=== PATIENT | male | born 1955 | race Caucasian/White ===

== ENCOUNTER 2017-06-01 05:40 | Day surgery (SDC) | payer OTHER, SELFPAY ==
--- NOTE | 2017-05-27 07:30 | EKG12_ITS ---
Test Reason : PREOP Blood Pressure : / mmHG Vent. Rate : 079 BPM Atrial Rate : 079 BPM P-R Int : 120 ms QRS Dur : 100 ms QT Int : 370 ms P-R-T Axes : 041 078 070 degrees QTc Int : 424 ms Normal sinus rhythm Normal ECG Confirmed by YAIR MOREJON, BINA ([id number]), video effects editor LASHAY ZHENG ([id number]) on 05/29/2017 3:00:59 PM Referred By: Matt Miles Confirmed By:BINA MAZARIEGOS MD
[2017-05-27 08:23] LABS: Hematocrit 44.6 % (40-54); Hemoglobin 15.4 g/dl (13.0-16.5); Mean Corp Hgb Conc 34.5 g/gl (32-36); Mean Corpuscular Hgb 31.5 pg (27.0-32.0); Mean Corpuscular Volume 91.2 fL (80-94); Mean Platelet Vol. 11.5 fl (6.2-12.0); Platelet Count 193 K/mm3 (150-450); RBC Distribution Width CV 13.5 % (11.6-14.6); RBC Distribution Width SD 44.4 fl (35.1-43.9); Red Blood Count 4.89 M/mm3 (4.6-6.2); White Blood Count 6.5 K/mm3 (4.4-11.0)
[2017-05-27 08:27] LABS: Scan Indicated on CBC? Y/N NO
[2017-05-27 08:56] LABS: Anion Gap 8 (5-15); BUN 23 mg/dL (7-18); BUN/Creat Ratio 26.6 RATIO (10-20); Calcium,Total 8.4 mg/dL (8.5-10.1); Chloride 107 mmol/L (98-107); Creatinine, Serum 0.87 mg/dL (0.70-1.30); EST Glomerular Filtration Rate 96 mL/min (>60); Est Glom Filt Rate - Afr Amer 116 mL/min (>60); Glucose 114 mg/dL (74-106); Potassium 4.6 mmol/L (3.5-5.1); Sodium Level 140 mmol/L (136-145)
[2017-06-01 06:10] VITALS: BP 132/95; PULSE 95; RESP 18; TEMP 36.6; O2SAT 96; BMI 32.5
[2017-06-01] MEDS: Cefazolin 2 GM in 0.9% Normal Saline 100 ML IV (07:13)
--- NOTE | 2017-06-01 07:15 | MASS_PTH ---
PATIENT: RAHUL NOVA LOC: [facility] [place] U#:[id number] AGE/SX: 62/M ROOM: RE06/01/[address]: Dr. Matt Miles MD : [id number] BED: DIS: 06/01/2017 SPEC #: [id number] RECD: 06/01/17 08:31 STATUS: MUSHTAQ AMELIA #: [id number] LOPEZ: 06/01/17 07:[address]: Matt Miles DEPT: SURGICAL PATHOLOGY RECD BY: Jena Rocha ENTERED: 06/01/17 10:58 SP TYPE: Mass OTHR DR: Jeanine Primary Care Phys Tissues: Right breast, NOS Procedures: Surgery Specimen Level III HEADER OPERATION: Breast debridement, retroareolar PRE-OP DIAGNOSIS: Right breast mass TISSUE SUBMITTED: Right retroareolar mass MICROSCOPIC DIAGNOSIS Right retroareolar mass, biopsy: Ruptured epidermal inclusion cyst with associated inflammation and foreign body giant cell reaction. SJ:parveen 06/02/17 MICROSCOPIC DESCRIPTION Slides are reviewed. GROSS DESCRIPTION Received in fixative is one container labeled with the patient's name and designated right retroareolar mass. The specimen consists of a piece of adipose tissue measuring 2 x 2 x1.5 cm. The specimen is inked, serially sectioned and reveals a cyst measuring 1.5 cm in greatest dimension. The entire specimen is submitted in one cassette. / VIOLA:parveen 06/01/17 TC:5 CPT: 68600
[2017-06-01] MEDS: Bupivacaine Mpf 0.5% 30 ML VIAL (07:45)
--- NOTE | 2017-06-01 07:59 | PCM.OPRPT ---
Problem List (1) Breast mass in male Status: Acute Report of Operation Date of Procedure: 06/01/17 Pre-Operative Diagnosis: Right retro-areolar breast mass Post-Operative Diagnosis: Cystic right retroareolar breast mass Surgery/Procedure Performed:: Right subcutaneous mastectomy Description of Surgical Findings:: Timeout and informed consent was obtained. 62-year-old gent was taken out from placement table underwent general anesthesia. Ancef 2 g given intravenous preoperatively. The right breast was sterilely prepped and draped. A curvilinear incision was made circumareolar the anterolateral aspect of the right breast. Sharp dissection performed directly retroareolar Moiz. A cystic lesion was encountered with a light thurston purulent material. 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 Then a right breast subtendinous mastectomy was performed using sharp and electrocautery dissection to completely excise this cystic mass. Hemostasis was assured with electrocautery. The wound was irrigated. The wound was approximated with interrupted 4-0 Monocryl subdermal stitches. A rubber band drain was left in place. Bulky dry dressings applied. Blood loss minimal. The michelle-incisional area was anesthetized with 30 cc 0.5% Marcaine. Sponge instrument and needle counts were reported to be correct. The specimen was submitted in formalin for analysis. No apparent complications. Matt Miles M.D., F.A.C.S. Type of Anesthesia:: General Anesthesiologist: Kan Silvestre
[2017-06-01 08:01] VITALS: BP 127/83; BP 132/95; PULSE 80; RESP 18; TEMP 36.1; O2SAT 92
--- NOTE | 2017-06-01 08:02 | OP.PCM_ITS ---
Problem List (1) Breast mass in male Status: Acute Report of Operation Date of Procedure: 06/01/17 Pre-Operative Diagnosis: Right retro-areolar breast mass Post-Operative Diagnosis: Cystic right retroareolar breast mass Surgery/Procedure Performed:: Right subcutaneous mastectomy Description of Surgical Findings:: Timeout and informed consent was obtained. 62-year-old gent was taken out from placement table underwent general anesthesia. Ancef 2 g given intravenous preoperatively. The right breast was sterilely prepped and draped. A curvilinear incision was made circumareolar the anterolateral aspect of the right breast. Sharp dissection performed directly retroareolar Moiz. A cystic lesion was encountered with a light thurston purulent material. 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 Then a right breast subtendinous mastectomy was performed using sharp and electrocautery dissection to completely excise this cystic mass. Hemostasis was assured with electrocautery. The wound was irrigated. The wound was approximated with interrupted 4-0 Monocryl subdermal stitches. A rubber band drain was left in place. Bulky dry dressings applied. Blood loss minimal. The michelle-incisional area was anesthetized with 30 cc 0.5% Marcaine. Sponge instrument and needle counts were reported to be correct. The specimen was submitted in formalin for analysis. No apparent complications. Matt Miles M.D., F.A.C.S. Type of Anesthesia:: General Anesthesiologist: Kan Silvestre
--- NOTE | 2017-06-01 08:02 | PCM.DC.GS ---
Discharge Diet: Light diet - advance as tolerated - if you have questions about your diet instructions, please talk to you doctor. Discharge Activity: May Not Drive - for 1 week or while taking narcotic pain medicine. May shower in (days): 3 Lifting Restrictions: 10 pounds Call your doctor if your incision/area has: Continuous Slow Oozing, Sudden Increased Bleeding, Increased Pain/ Swelling, Increased Redness, Foul Smelling Discharge Call your doctor if you observe: Fever of 101 or Higher Suture Line Care: Avoid Pulling/Pushing, Avoid Pinching/Bending Additional Dressing/Incision Instructions:: Office appt tomorrow for dressing change and wick advancement Allergies/Adverse Reactions: Allergies No Known Allergies Allergy (Verified 05/24/17 10:25) Medications to take at Discharge Hydrocodone Bitart/Apap 5-325 [Tyrone 5MG-325MG] 1 tab PO Q6H PRN PRN 4 Days #8 tab 06/01/17 Hydrocodone Bitart/Apap 5-325 [Tyrone 5MG-325MG] 1 tablet PO Q6H PRN PRN 4 Days #8 tablet 06/01/17 The following prescriptions were given: Hydrocodone Bitart/Apap 5-325 [Tyrone 5MG-325MG] 1 tablet PO Q6H PRN PRN 4 Days #8 tablet PRN Reason: Pain Hydrocodone Bitart/Apap 5-325 [Tyrone 5MG-325MG] 1 tab PO Q6H PRN PRN 4 Days #8 tab PRN Reason: Pain Primary Care Physician: Care Physician,No Primary [Primary Care Provider] - Please Follow Up With: Matt Miles MD - [phone] When: Call to make an appointment to be seen in about 1 days.
--- NOTE | 2017-06-01 08:06 | DCINST_ITS ---
Discharge Diet: Light diet - advance as tolerated - if you have questions about your diet instructions, please talk to you doctor. Discharge Activity: May Not Drive - for 1 week or while taking narcotic pain medicine. May shower in (days): 3 Lifting Restrictions: 10 pounds Call your doctor if your incision/area has: Continuous Slow Oozing, Sudden Increased Bleeding, Increased Pain/ Swelling, Increased Redness, Foul Smelling Discharge Call your doctor if you observe: Fever of 101 or Higher Suture Line Care: Avoid Pulling/Pushing, Avoid Pinching/Bending Additional Dressing/Incision Instructions:: Office appt tomorrow for dressing change and wick advancement Allergies/Adverse Reactions: Allergies No Known Allergies Allergy (Verified 05/24/17 10:25) Medications to take at Discharge Hydrocodone Bitart/Apap 5-325 [[place] 5MG-325MG] 1 tab PO Q6H PRN PRN 4 Days #8 tab 06/01/17 Hydrocodone Bitart/Apap 5-325 [[place] 5MG-325MG] 1 tablet PO Q6H PRN PRN 4 Days # 8 tablet 06/01/17 The following prescriptions were given: Hydrocodone Bitart/Apap 5-325 [[place] 5MG-325MG] 1 tablet PO Q6H PRN PRN 4 Days # 8 tablet PRN Reason: Pain Hydrocodone Bitart/Apap 5-325 [[place] 5MG-325MG] 1 tab PO Q6H PRN PRN 4 Days #8 tab PRN Reason: Pain Primary Care Physician: Care Physician,No Primary [Primary Care Provider] - Please Follow Up With: Matt Miles MD - [phone] When: Call to make an appointment to be seen in about 1 days.
[2017-06-01 08:15] VITALS: BP 122/79; BP 132/95; PULSE 79; RESP 18; O2SAT 94
[2017-06-01 08:23] VITALS: BP 114/89; BP 132/95; PULSE 87; RESP 18; TEMP 35.9; O2SAT 94
[2017-06-01 09:08] VITALS: BP 132/95
== END 2017-06-01 09:12 | disposition home or self-care (01) ==
LOC: SDC 05:41 → AC 05:41
PROVIDERS: Visit Provider Surgery
PROC: (CPT 19120; principal; 2017-06-01 07:00)
DX: N60.01 Solitary cyst of right breast (principal); F17.210 Nicotine dependence, cigarettes, uncomplicated
CPT/HCPCS: 00400; 19120; 36415; 80048; 85027; 87070; 87075; 87077; 87186; 87205; 88304; 93005; J7120

== ENCOUNTER 2018-05-18 22:24 | Emergency (ER) | payer OTHER, SELFPAY ==
[2018-05-18 22:24] VITALS: BP 153/85; PULSE 80; RESP 18; TEMP 35.5; O2SAT 95; BMI 32.5
--- NOTE | 2018-05-18 22:40 | RAD_ITS ---
STUDY: X-RAY - RIGHT ELBOW REASON FOR EXAM: Male, 63 years old. Pain. Fall. TECHNIQUE: 3 view(s) of the elbow. COMPARISON: None. FINDINGS: Normal visualized humerus, radius and ulna. Normal radiocapitellar and ulnotrochlear articulations. Calcified spur seen at the insertion of the triceps tendon. 5 mm calcification in the medial dorsal soft tissues probably from a phlebolith. The soft tissue structures are otherwise unremarkable. RAD/Elbow min 3 Views IMPRESSION: No acute fracture or dislocation. Electronically Signed: Mainor Goyal MD at 22:57 EST , Service support ,
--- NOTE | 2018-05-18 22:56 | ED.VISSUMM ---
- ER Visit Summary Date of Service: 05/18/18 Chief Complaint: Right elbow injury History of Present Illness: The patient is a 63 M who presents with a right elbow injury. He had a mechanical fall 5 days ago. He was walking on the steps slipped falling onto his right elbow. He denies any other injuries. No head injury loss of consciousness chest pain abdominal pain back pain. He only complains of mild intermittent pain. He was more concerned about the swelling and bruising. He is on no daily medications. No paresthesias weakness loss of function. Physical Examination: Afebrile vitals unremarkable Heart regular rate and rhythm Lungs clear There is ecchymosis of the right elbow and proximal forearm he has tenderness over the right elbow but no obvious bony deformity he does have active full range of motion he has an easily palpable radial pulse brisk capillary refill normal sensation light touch normal strength Test Results: Right elbow x-ray shows no acute fracture or dislocation Emergency Department Course and Treatment: X-rays negative as above. Patient advised on supportive care including rest ice elevation. He understands to return for new or worsening symptoms and was discharged home. Treatment Plan: [] Disposition: Discharge Impression: Right elbow contusion This note was generated with [employer] dictation software. It may contain incorrect words, spelling, and punctuation that were not noted in review of the chart prior to signing ED Disposition - Plan for ED Patient: Referrals: Care Physician,No Primary [Primary Care Provider] -
--- NOTE | 2018-05-18 23:01 | ED.DCSUM_ITS ---
- ER Visit Summary Date of Service: 05/18/18 Chief Complaint: Right elbow injury History of Present Illness: The patient is a 63 M who presents with a right elbow injury. He had a mechanical fall 5 days ago. He was walking on the steps slipped falling onto his right elbow. He denies any other injuries. No head injury loss of consciousness chest pain abdominal pain back pain. He only complains of mild intermittent pain. He was more concerned about the swelling and bruising. He is on no daily medications. No paresthesias weakness loss of function. Physical Examination: Afebrile vitals unremarkable Heart regular rate and rhythm Lungs clear There is ecchymosis of the right elbow and proximal forearm he has tenderness over the right elbow but no obvious bony deformity he does have active full range of motion he has an easily palpable radial pulse brisk capillary refill n ormal sensation light touch normal strength Test Results: Right elbow x-ray shows no acute fracture or dislocation Emergency Department Course and Treatment: X-rays negative as above. Patient advised on supportive care including rest ice elevation. He understands to return for new or worsening symptoms and was discharged home. Treatment Plan: [] Disposition: Discharge Impression: Right elbow contusion This note was generated with [employer] dictation software. It may contain incorrect words, spelling, and punctuation that were not noted in review of the chart prior to signing ED Disposition - Plan for ED Patient: Referrals: Care Physician,No Primary [Primary Care Provider] -
--- NOTE | 2018-05-18 23:02 | ED.DEP ---
ED Disposition - Plan for ED Patient: Instructions: ED Contusion Elbow Referrals: Care Physician,No Primary [Primary Care Provider] -
[2018-05-18 23:11] VITALS: RESP 16
== END 2018-05-18 23:12 | disposition home or self-care (01) ==
LOC: ED 23:06
PROVIDERS: Emergency Provider Emergency Medicine
DX: S50.01XA Contusion of right elbow, initial encounter (principal); W01.10XA Fall on same level from slipping, tripping and stumbling with subsequent striking against unspecified object, initial encounter; Y93.01 Activity, walking, marching and hiking; Y92.9 Unspecified place or not applicable; Y99.9 Unspecified external cause status; Z72.0 Tobacco use
CPT/HCPCS: 73080; 99282